=== PATIENT | male | born 1960 | race Caucasian/White ===

== ENCOUNTER 2016-10-13 11:49 | Emergency (ER) | payer MEDICAID, MEDICARE ==
[~2016-10-13] VITALS: Ht 188 cm; Wt 95.0 kg
[~2016-10-13 11:49] MED LIST: AMT50T PO; ATRV10T PO; BACL10TA PO; GABA600T2 PO; HYDR-3091 PO; KLO1T PO; LORA-305 PO; OXYC-474 PO; QUET100T PO; TOPI-59 PO
[2016-10-13 11:50] VITALS: BP 102/67; PULSE 76; RESP 15; O2SAT 95
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
[2016-10-13] MEDS ORDERED: predniSONE 20 mg Tablet PO ONE (14:20)
[2016-10-13] MEDS ORDERED: PRE20 PO (14:25)
[2016-10-13] MEDS ORDERED: HYDROmorphone 1 mg/mL Inj IM ONE (16:30)
== END 2016-10-13 14:25 | disposition home or self-care (01) ==
LOC: SED 11:49
DX: M54.5 Low back pain (principal); X50.0XXA Overexertion from strenuous movement or load, initial encounter; Y93.E5 Activity, floor mopping and cleaning; Y92.89 Other specified places as the place of occurrence of the external cause; Y99.8 Other external cause status; F32.9 Major depressive disorder, single episode, unspecified; F17.200 Nicotine dependence, unspecified, uncomplicated; Z79.899 Other long term (current) drug therapy; Z88.5 Allergy status to narcotic agent
CPT/HCPCS: 96372; 99284; J1170; J1885

== ENCOUNTER 2016-11-10 11:08 | Emergency (ER) | payer MEDICARE, MEDICAID ==
[~2016-11-10 11:08] MED LIST changes: +PRE20 PO
[2016-11-10 11:14] VITALS: BP 122/78; PULSE 85; RESP 16; O2SAT 98
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
[2016-11-10] MEDS ORDERED: 0.9% Sodium Chloride 1,000 ML IV ONE (11:27)
[2016-11-10 11:52] LABS: Mean Corpuscular Hemoglobin 29.2 pg (27.0-35.0); Mean Corpuscular Volume 84.7 fL (81-100)
[2016-11-10] MEDS ORDERED: chlordiazePOXIDE 25 mg Capsule PO ONE (14:30)
[2016-11-10 14:40] VITALS: BP 128/81; PULSE 78; RESP 12; O2SAT 98
[2016-11-10] MEDS ORDERED: CHLO25CA10 PO (14:50)
[2016-11-10 17:05] VITALS: BP 128/77; PULSE 84; RESP 18; O2SAT 96
[2016-11-10] MEDS ORDERED: AMT50T PO (17:23)
[2016-11-10] MEDS ORDERED: QUET100T PO (17:23)
[2016-11-10] MEDS ORDERED: ATOR20TA PO (17:23)
[2016-11-10] MEDS ORDERED: GABA600T2 PO (17:23)
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
== END 2016-11-10 17:07 | disposition home or self-care (01) ==
LOC: SED 11:08
DX: F10.10 Alcohol abuse, uncomplicated (principal); F17.200 Nicotine dependence, unspecified, uncomplicated; Z79.899 Other long term (current) drug therapy; Z88.5 Allergy status to narcotic agent
CPT/HCPCS: 36415; 80053; 82075; 85027; 90791; 93005; 96360; 99284; G0480; J7030